=== PATIENT | male | born 1980 | race Caucasian/White ===

== ENCOUNTER 2019-04-15 11:56 | Emergency (ER) | payer BC ==
[~2019-04-15] VITALS: Ht 180.3 cm; Wt 104.3 kg
[2019-04-15 12:47] VITALS: BP 130/72
--- NOTE | 2019-04-15 12:55 | Diagnostic Imaging Report ---
EXAM: CXR 2 VIEW - [facility] DATE: 04/15/2019 12:00 AM INDICATION: Chest pain, nausea, vomiting, diarrhea COMPARISON: None FINDINGS: The trachea is midline. The lungs are symmetrically expanded without evidence for large focal consolidation, pneumothorax, or significant pleural effusion. The cardiomediastinal silhouette and pulmonary vasculature are within normal limits. No acute osseous abnormality is identified. The surrounding soft tissues are unremarkable. IMPRESSION: No acute cardiopulmonary process identified. Signed by: Dr. Reji Lucas MD on 04/15/2019 12:51 PM
== END 2019-04-15 12:50 | disposition home or self-care (01) ==
LOC: FSED 11:56
DX: R07.89 Other chest pain (principal); K21.9 Gastro-esophageal reflux disease without esophagitis; K22.4 Dyskinesia of esophagus
CPT/HCPCS: 71046; 80053; 82553; 83880; 84484; 85025; 85379; 93005; 99283